=== PATIENT | male | born 1950 | race Caucasian/White ===

== ENCOUNTER 2023-12-28 15:47 | Outpatient (CLI) | payer MEDICARE, SELFPAY ==
[2023-12-28 16:22] LABS: CRP < 0.5 mg/dL (<1.0)
[2023-12-28 16:31] LABS: Erythrocyte Sedimentation Rate 1 mm/hr (0-20)
[2023-12-28 21:59] LABS: Thyroid Stimulating Hormone Reflex 0.462 uIU/mL (0.465-4.68)
[2023-12-28 22:34] LABS: Free T4 Free Thyroxine Reflex 0.68 ng/dL (0.78-2.19)
[2024-01-01 06:59] LABS: Immunoglobulin A 155 mg/dL (70-320); TTG IGA AB <1.0 U/mL
== END 2023-12-28 15:48 | disposition home or self-care (01) ==
LOC: ANHLAB 15:48
PROVIDERS: PCP Nurse Practitioner; Visit Provider Nurse Practitioner
DX: R11.0 Nausea (principal); K58.0 Irritable bowel syndrome with diarrhea; R63.4 Abnormal weight loss
CPT/HCPCS: 36415; 82784; 84439; 84443; 85652; 86140; 86364

== ENCOUNTER 2024-01-02 15:49 | Outpatient (CLI) | payer MEDICARE, SELFPAY ==
[2024-01-10 08:06] LABS: Pancreatic Elastase, Stool 242
[2024-01-10 08:07] LABS: Calprotectin, Stool 78; H pylori Ag Stool Not Detected
== END 2024-01-02 15:50 | disposition home or self-care (01) ==
PROVIDERS: PCP Nurse Practitioner; Visit Provider Nurse Practitioner
DX: K58.0 Irritable bowel syndrome with diarrhea (principal); R11.0 Nausea
CPT/HCPCS: 82653; 83993; 87338